=== PATIENT | female | born 1945 | race Caucasian/White ===

== ENCOUNTER 2018-12-14 10:20 | Emergency (ER) | payer SELFPAY ==
[~2018-12-14] VITALS: Ht 160 cm; Wt 68.0 kg
[2018-12-14 10:28] VITALS: BP 135/58
[2018-12-14] MEDS ORDERED: [UNRECOGNIZED DRUG - OTHER] ORAL (10:57)
--- NOTE | 2018-12-14 11:00 | NUR ---
ED Nurse Note:pt. was BIBA from home with ALOC due to possible alcohol or drugs intake, VSS, pt. is cooperative [place] marybeth only, blood and urine sen to labs and IV fluids are given
[2018-12-14] MEDS ORDERED: [UNRECOGNIZED DRUG - OTHER] ORAL (11:01)
[2018-12-14] MEDS ORDERED: PROSOM2 MG ORAL (11:01)
[2018-12-14] MEDS ORDERED: [UNRECOGNIZED DRUG - OTHER] ORAL (11:01)
[2018-12-14] MEDS ORDERED: [UNRECOGNIZED DRUG - OTHER] ORAL (11:01)
[2018-12-14] MEDS ORDERED: [UNRECOGNIZED DRUG - OTHER] ORAL (11:01)
[2018-12-14 11:14] LABS: APPEARANCE,URINE CLEAR; BILIRUBIN, URINE NEGATIVE (NEGATIVE); COLOR,URINE PALE YELLOW; GLUCOSE, URINE (UA) NEGATIVE (NEGATIVE); KETONES,URINE 3+ (NEGATIVE); LEUKOCYTE ESTERASE ,URINE 1+ (NEGATIVE); NITRITE,URINE NEGATIVE (NEGATIVE); PH,URINE 6 (4.5-8.0); PROTEIN,URINE 2+ (NEGATIVE); UROBILINOGEN,URINE NORMAL MG/DL (0.0-1.0)
[2018-12-14 11:15] LABS: BASOPHILS % (AUTO) 1.1 % (0.0-2.0); EOSINOPHILS % (AUTO) 1.3 % (0.0-3.0); HEMATOCRIT 48.2 % (37.0-47.0); HEMOGLOBIN 16.2 G/DL (12.0-16.0); MEAN CORPUSCULAR VOLUME 91 FL (80-99); MONOCYTES % (AUTO) 6.3 % (1.0-10.0); NEUTROPHILS % (AUTO) 59.3 % (45.0-75.0); PLATELET COUNT 239 K/UL (150-450); RED BLOOD COUNT 5.31 M/UL (4.20-5.40); RED CELL DISTRIBUTION WIDTH 12.4 % (11.6-14.8); WHITE BLOOD COUNT 7.8 K/UL (4.8-10.8)
--- NOTE | 2018-12-14 11:16 | NUR ---
ED Nurse Note:CT scan of head was done
--- NOTE | 2018-12-14 11:27 | Diagnostic Imaging Report ---
EXAM: CT Head Without Intravenous Contrast CLINICAL HISTORY: AMS TECHNIQUE: Axial computed tomography images of the head/brain without intravenous contrast. CTDI is 70.38 mGy and DLP is 1610 mGy-cm. One or more of the following dose reduction techniques were used: automated exposure control, adjustment of the mA and/or kV according to patient size, use of iterative reconstruction technique. COMPARISON: No relevant prior studies available. FINDINGS: Brain: No hemorrhage. No edema. Involutional changes with small vessel disease. Ventricles: No ventriculomegaly. Bones/joints: No acute fracture. Soft tissues: Unremarkable. Sinuses: No acute sinusitis. Mastoid air cells: No mastoid effusion. Other: Cataract surgery. IMPRESSION: No acute intracranial process.
[2018-12-14 11:31] LABS: ANION GAP 15 mmol/L (5-15); BLOOD UREA NITROGEN 22 mg/dL (7-18); CALCIUM 9.7 MG/DL (8.5-10.1); CARBON DIOXIDE 22 MMOL/L (21-32); CHLORIDE 103 MMOL/L (98-107); CREATININE 0.7 MG/DL (0.55-1.30); POTASSIUM 4.3 MMOL/L (3.5-5.1); SODIUM 140 MMOL/L (136-145)
[2018-12-14 11:36] LABS: ALANINE AMINOTRANSFERASE 95 U/L (12-78); ALBUMIN 3.8 G/DL (3.4-5.0); ALBUMIN/GLOBULIN RATIO 0.9 (1.0-2.7); ALKALINE PHOSPHATASE 118 U/L (46-116); ASPARTATE AMINO TRANSFERASE 113 U/L (15-37); BILIRUBIN,TOTAL 0.4 MG/DL (0.2-1.0)
[2018-12-14 12:51] VITALS: BP 144/61
[2018-12-14 14:02] VITALS: BP 118/55
--- NOTE | 2018-12-14 14:03 | NUR ---
ED Nurse Note:pt. went to portable potty, but still unstable on her feet, sleeping now
--- NOTE | 2018-12-14 14:25 | NUR ---
ED Nurse Note:pt. ambulated to the bathroom, A/Ox3
--- NOTE | 2018-12-14 14:33 | NUR ---
ED Nurse Note:called friend to [place] [facility] patient- will be in one hr
--- NOTE | 2018-12-14 14:39 | Emergency Room Report ---
History of Present Illness General Chief Complaint: Substance Abuse Source: Patient, Family Member, EMS Present Illness HPI 72-year-old female presents ED for evaluation. Brought in by EMS from home for reported overdose. Family found patient very lethargic and they were worried so they called 911. Patient had alcohol bottle next to her and some pills. Upon arrival patient is more alert and oriented. Is visiting from [place]. Does take multiple medications. States she feels okay. Denies SI or HI. No other aggravating relieving factors. Denies any other associated symptoms Allergies: Coded Allergies: No Known Allergies (Unverified , 12/14/18) Patient History Past Medical History: HTN, COPD Past Surgical History: none Pertinent Family History: none Social History: Denies: smoking, alcohol use, drug use Now: No Immunizations: UTD Reviewed Nursing Documentation: PMH: Agreed; PSxH: Agreed Nursing Documentation-PMH Past Medical History: No History, Except For Hx Cardiac Problems: Yes Hx Hypertension: Yes Hx COPD: Yes Review of Systems All Other Systems: negative except mentioned in HPI Physical Exam Vital Signs Date Time Temp Pulse Resp B/P (MAP) Pulse Ox O2 Delivery O2 Flow Rate FiO2 12/14/18 10:17 97.9 88 17 132/86 (101) 94 Room Air Sp02 EP Interpretation: reviewed, normal General Appearance: no apparent distress, GCS 15, non-toxic, lethargic Head: normocephalic, atraumatic Eyes: bilateral eye normal inspection, bilateral eye PERRL ENT: hearing grossly normal, normal pharynx, no angioedema, normal voice Neck: full range of motion, supple/symm/no masses Respiratory: chest non-tender, lungs clear, normal breath sounds, speaking full sentences Cardiovascular #1: regular rate, rhythm, no edema Cardiovascular #2: 2+ carotid (R), 2+ carotid (L), 2+ radial (R), 2+ radial (L) , 2+ dorsalis pedis (R), 2+ dorsalis pedis (L) Gastrointestinal: normal bowel sounds, non tender, soft, non-distended, no guarding, no rebound Rectal: deferred Genitourinary: normal inspection, no CVA tenderness Musculoskeletal: back normal, gait/station normal, normal range of motion, non- tender Neurologic: responsive, motor strength/tone normal, sensory intact, speech normal, other - lethargic Psychiatric: judgement/insight normal, memory normal, mood/affect normal, no suicidal/homicidal ideation, other - lethargic Reflexes: 3+ bicep (R), 3+ bicep (L), 3+ tricep (R), 3+ tricep (L), 3+ knee (R) , 3+ knee (L) Lymphatic: no adenopathy Medical Decision Making Diagnostic Impression: Primary Impression: Substance abuse Additional Impression: Alcohol intoxication Qualified Codes: F10.920 - Alcohol use, unspecified with intoxication, uncomplicated ER Course Hospital Course 72-year-old F presents to ED with altered mental status. more awake on arrival Differential diagnoses include: Psychosis, EtOH, drug abuse Clinical course patient placed on stretcher. On campus monitor. After initial history and physical ordered labs, IV fluids, CT brain. Labs reviewed-electrolytes okay, no leukocytosis, hemoglobin/hematocrit stable, tox panel + BZs, ETOH > 300 CT brain shows no acute pathology She is allowed to rest. Stable vitals on monitor. Is now more awake alert oriented. Talking appropriately. Ambulating without difficulty. Discussed findings with family. Safe for discharge for close outpatient follow-up. Instructed on cautions of alcohol and prescription medications. we'll provide referrals. i. I feel this is a highly complex case requiring extensive working including EKG/Rhythm strip, Xray/CT/US, Blood/urine lab work, repeat exams while in ED, and administration of strong opiates/narcotics for pain control, admission to hospital or close patient follow up. Diagnosis -substance abuse, alcohol intoxication Stable and discharged to home. Followup with PMD. Return to ED if symptoms recur or worsen Labs Test 12/14/18 11:00 White Blood Count 7.8 K/UL (4.8-10.8) Red Blood Count 5.31 M/UL (4.20-5.40) Hemoglobin 16.2 G/DL (12.0-16.0) Hematocrit 48.2 % (37.0-47.0) Mean Corpuscular Volume 91 FL (80-99) Mean Corpuscular Hemoglobin 30.5 PG (27.0-31.0) Mean Corpuscular Hemoglobin Concent 33.6 G/DL (32.0-36.0) Red Cell Distribution Width 12.4 % (11.6-14.8) Platelet Count 239 K/UL (150-450) Mean Platelet Volume 5.9 FL (6.5-10.1) Neutrophils (%) (Auto) 59.3 % (45.0-75.0) Lymphocytes (%) (Auto) 32.0 % (20.0-45.0) Monocytes (%) (Auto) 6.3 % (1.0-10.0) Eosinophils (%) (Auto) 1.3 % (0.0-3.0) Basophils (%) (Auto) 1.1 % (0.0-2.0) Urine Color Pale yellow Urine Appearance Clear Urine pH 6 (4.5-8.0) Urine Specific [place] 1.020 (1.005-1.035) Urine Protein 2+ (NEGATIVE) Urine Glucose (UA) Negative (NEGATIVE) Urine Ketones 3+ (NEGATIVE) Urine Blood 2+ (NEGATIVE) Urine Nitrite Negative (NEGATIVE) Urine Bilirubin Negative (NEGATIVE) Urine Urobilinogen Normal MG/DL (0.0-1.0) Urine Leukocyte Esterase 1+ (NEGATIVE) Urine RBC 2-4 /HPF (0 - 2) Urine WBC 0-2 /HPF (0 - 2) Urine Squamous Epithelial Cells Moderate /LPF (NONE/OCC) Urine Bacteria Few /HPF (NONE) Sodium Level 140 MMOL/L (136-145) Potassium Level 4.3 MMOL/L (3.5-5.1) Chloride Level 103 MMOL/L (98-107) Carbon Dioxide Level 22 MMOL/L (21-32) Anion Gap 15 mmol/L (5-15) Blood Urea Nitrogen 22 mg/dL (7-18) Creatinine 0.7 MG/DL (0.55-1.30) Estimat Glomerular Filtration Rate mL/min (>60) Glucose Level 83 MG/DL (74-106) Calcium Level 9.7 MG/DL (8.5-10.1) Total Bilirubin 0.4 MG/DL (0.2-1.0) Aspartate Amino Transf (AST/SGOT) 113 U/L (15-37) Alanine Aminotransferase (ALT/SGPT) 95 U/L (12-78) Alkaline Phosphatase 118 U/L (46-116) Total Protein 7.8 G/DL (6.4-8.2) Albumin 3.8 G/DL (3.4-5.0) Globulin 4.0 g/dL Albumin/Globulin Ratio 0.9 (1.0-2.7) Salicylates Level 2.9 ug/mL (2.8-20) Urine Opiates Screen Negative (NEGATIVE) Acetaminophen Level < 2 MCG/ML (10-30) Urine Barbiturates Screen Negative (NEGATIVE) Phencyclidine (PCP) Screen Negative (NEGATIVE) Urine Amphetamines Screen Negative (NEGATIVE) Urine Benzodiazepines Screen Positive (NEGATIVE) Urine Cocaine Screen Negative (NEGATIVE) Urine Marijuana (THC) Screen Negative (NEGATIVE) Serum Alcohol 332 mg/dL CT/MRI/US Diagnostic Results CT/MRI/US Diagnostic Results : Imaging Test Ordered: CT Head Impression no acute process Last Vital Signs Date Time Temp Pulse Resp B/P (MAP) Pulse Ox O2 Delivery O2 Flow Rate FiO2 12/14/18 14:02 79 17 118/55 98 Room Air 12/14/18 12:51 97.9 Status: improved Disposition: HOME, SELF-CARE Condition: Stable Referrals: NOT CHOSEN IPA/,REFERRING (PCP) Delmy Maynard Comp. [facility] Eros Svaage MD Dec 14, 2018 14:39
--- NOTE | 2018-12-14 16:00 | NUR ---
ER DISCHARGE NOTE: Patient is cleared to be discharged per ERMD, pt is aox4, on room air, with stable vital signs. pt was given dc and prescription instructions, pt was able to verbalize understanding, pt id band and iv site removed without complications. pt is able to ambulate with steady gait. pt took all belongings, taken home by friend
[2018-12-14 16:01] VITALS: BP 118/55
== END 2018-12-14 16:03 | disposition home or self-care (01) ==
LOC: EDBD 10:20 → EMR 10:57
DX: F10.920 Alcohol use, unspecified with intoxication, uncomplicated (principal); F13.10 Sedative, hypnotic or anxiolytic abuse, uncomplicated; J44.9 Chronic obstructive pulmonary disease, unspecified; I10 Essential (primary) hypertension; Y90.8 Blood alcohol level of 240 mg/100 ml or more
CPT/HCPCS: 36415; 70450; 80053; 80307; 81003; 85025; 96360; 99284; G0480; 80329